=== PATIENT | male | born 1955 | race Caucasian/White ===

== ENCOUNTER → 2017-01-30 | Outpatient (CLI) | payer BC ==
[2017-01-30 09:57] LABS: Basophils # (A) 0.1 k/uL (0-0.2); Basophils % (A) 1 %; CH 31.1; CHCM 34.9; Eosinophils # (A) 0.2 k/uL (0-0.7); Eosinophils % (A) 3 %; HCT 49.8 % (39.0-53.0); HDW 2.47; HGB 16.7 gm/dL (13.0-17.5); Luc # (Auto) 0.18; Luc % (Auto) 3; Lymphocytes # (A) 1.9 k/uL (1.0-4.8); Lymphocytes % (A) 31 %; MCHC 33.6 g/dL (31.0-37.0); MCV 89.2 fL (80.0-100.0); Mean Platelet Volume 6.7; Monocytes # (A) 0.5 k/uL (0-1.0); Monocytes % (A) 8 %; Neutrophils # (A) 3.4 k/uL (1.3-7.7); Neutrophils % (A) 54 %; RBC 5.58 m/uL (4.30-5.90); RDW 12.2 % (11.5-15.5); WBC 6.3 k/uL (3.8-10.6); WBC (Perox) 5.77
[2017-01-30 10:12] LABS: Bilirubin, Delta 0.3 mg/dL (0.0-0.2); Total Bilirubin 0.9 mg/dL (0.2-1.3); Total Protein 7.7 g/dL (6.3-8.2)
[2017-02-02 11:52] LABS: HCV Qualitative Result DETECTED (Not detected)
== END | disposition home or self-care (01) ==
LOC: LABWHC1 09:31
PROVIDERS: ATTEND Physician Assistant
DX: B18.2 Chronic viral hepatitis C (principal)
CPT/HCPCS: 36415; 80076; 85025; 87522; 87902

== ENCOUNTER 2017-03-25 16:44 | Emergency (ER) | payer BC ==
[2017-03-25 16:55] VITALS: BP 139/95; PULSE 67; RESP 18; TEMP 97.1
[2017-03-25] MEDS ORDERED: DIPH,PERTUS(ACELL)TETVAC-LF 0.5 ML VIAL IM ONE (17:03)
[2017-03-25] MEDS ORDERED: ceFAZolin 1,000 MG VIAL IM STA (17:04)
--- NOTE | 2017-03-25 17:12 | XR ---
EXAMINATION TYPE: XR hand complete LT DATE OF EXAM: 03/25/2017 COMPARISON: NONE HISTORY: Injury and foreign body TECHNIQUE: 3 views FINDINGS: There is a metal nail foreign body projected in the soft tissues between the third and four th metacarpals. I see no fracture nor dislocation. IMPRESSION: Nail foreign body projected through the soft tissues as above.
--- NOTE | 2017-03-25 17:16 | ED ---
Upper Extremity HPI - General Chief Complaint: Extremity Injury, Upper Stated Complaint: nail in hand Time Seen by Provider: 03/25/17 17:00 Source: patient, RN notes reviewed Mode of arrival: ambulatory Limitations: no limitations - History of Present Illness Initial Comments: 61-year-old male presents emergency Department chief complaint left hand nail in it. Patient states that he was messing around with his nail gun because it was not functioning. Patient states it went off into his hand. He is unsure when his last tetanus was. Patient is right-hand dominant. Lesions states the nail entered his home aspect and is pointing out his dorsal aspect. Patient denies any paresthesias. Denies any decreased range of motion. He states it does feel sore. - Related Data Previous Rx's Medication Instructions Recorded Cephalexin [Keflex] 500 mg PO Q6HR #40 cap 03/25/17 Hydrocodone/Acetaminophen [[place] 1 tab PO Q6HR PRN #15 tab 03/25/17 5-325] Allergies Allergy/AdvReac Type Severity Reaction Status Date / Time No Known Allergies Allergy Verified 03/25/17 17:25 Review of Systems ROS Statement: Those systems with pertinent positive or pertinent negative responses have been documented in the HPI. ROS Other: All systems not noted in ROS Statement are negative. Past Medical History Additional Past Medical History / Comment(s): hep c History of Any Multi-Drug Resistant Organisms: None Reported Past Surgical History: Orthopedic Surgery Additional Past Surgical History / Comment(s): brain aneurysm repain Past Psychological History: No Psychological Hx Reported Smoking Status: Never smoker Past Alcohol Use History: None Reported Past Drug Use History: None Reported General Exam Limitations: no limitations General appearance: alert, in no apparent distress Respiratory exam: Present: normal lung sounds bilaterally. Absent: respiratory distress, wheezes, rales, rhonchi, stridor Cardiovascular Exam: Present: regular rate, normal rhythm, normal heart sounds. Absent: systolic murmur, diastolic murmur, rubs, gallop, clicks Extremities exam: Present: other (Left hand there is a nail that enters through the palmar aspect and exit through the dorsal aspect patient has full sensation and neurovascular intact of all digits Refill less than 2 seconds and full range of motion of all digits) Course Vital Signs 03/25/17 16:51 Temperature 97.1 F L Pulse Rate 67 Respiratory 18 Rate Blood Pressure 139/95 O2 Sat by Pulse 100 Oximetry Procedures - Procedures Initial comment: Foreign body removal left hand: There was anesthetized with 6 mL of lidocaine 1 % without epinephrine pliers were used to grab the nail and removed without any complications there is a small venous ooze noted after. The hand was thoroughly irrigated, washed. Patient's neurovascular status remains unremarkable and has full strength and movement of all digits Medical Decision Making - Medical Decision Making 61-year-old male presented for left hand nail puncture. Patient nail was removed patient was given Ancef, and tetanus. Patient will be discharged on Keflex. Return parameters were discussed. I discussed the case with [facility] He just recommends antibiotics at this time. He may follow up with orthopedics in the office. Disposition Clinical Impression: Injury of hand by nail gun Disposition: HOME SELF-CARE Condition: Stable Instructions: Puncture Wound (ED) Additional Instructions: Please return to the Emergency Department if symptoms worsen or any other concerns. Prescriptions: Cephalexin [Keflex] 500 mg PO Q6HR #40 cap Hydrocodone/Acetaminophen [[place] 5-325] 1 tab PO Q6HR PRN #15 tab PRN Reason: Pain Referrals: None,Stated [Primary Care Provider] - 1-2 days Mayito Gonzalez DO [Doctor of Osteopathic Medicine] - 1-2 days Time of Disposition: 17:16
--- NOTE | 2017-03-25 17:30 | XR ---
EXAMINATION TYPE: XR hand limited LT DATE OF EXAM: 03/25/2017 COMPARISON: Today HISTORY: Foreign body removal TECHNIQUE: 2 views FINDINGS: There is been removal of the nail foreign body. There is a tiny chip fracture of the midsha ft of the fourth metacarpal. I see no residual foreign body. 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 IMPRESSION: Successful foreign body removal.
== END 2017-03-25 18:09 | disposition home or self-care (01) ==
LOC: EC 16:44
DX: S69.92XA Unspecified injury of left wrist, hand and finger(s), initial encounter (principal); Z23 Encounter for immunization; W32.1XXA Accidental handgun malfunction, initial encounter; Y93.89 Activity, other specified
CPT/HCPCS: 73120; 73130; 90715; 99283; 10120; 96372; 90471; J0690